=== PATIENT | female | born 1965 | race Caucasian/White ===

== ENCOUNTER 2018-07-26 09:13 | Emergency (ER) | payer MEDICAID ==
[~2018-07-26] VITALS: Ht 157.5 cm; Wt 83.9 kg
--- NOTE | 2018-07-26 09:20 | NUR ---
Patient ambulated to bed 2 with family. RN evaluating patient at bedside.
[2018-07-26 09:21] VITALS: BP 132/68
--- NOTE | 2018-07-26 09:30 | NUR ---
C/O LEFT ANKLE & SHOULDER PAIN 8/ & SHARP AFTER MECHANICAL SLIP AND FALL YESTERDAY AT HOME ON WET SURFACE WHILE TAKING TRASH OUT. MILD SWELLING NOTED TO OUTSIDE OF ANKLE, +2 PEDAL PULSE, M/S FUNCTION IN TACT, <3 SEC CAP REFILL, PT IS AMBULATORY WITH LIMP DUE TO PAIN. BED IN LOW POSITION, DAUGHTER AT BEDSIDE.
--- NOTE | 2018-07-26 09:50 | NUR ---
DR. HRAMON AT BEDSIDE
[2018-07-26 11:07] VITALS: BP 137/70
== END 2018-07-26 11:07 | disposition home or self-care (01) ==
LOC: MED 09:13
DX: S93.402A Sprain of unspecified ligament of left ankle, initial encounter (principal); S43.402A Unspecified sprain of left shoulder joint, initial encounter; I10 Essential (primary) hypertension; W01.0XXA Fall on same level from slipping, tripping and stumbling without subsequent striking against object, initial encounter; Y93.89 Activity, other specified; Y92.89 Other specified places as the place of occurrence of the external cause; Y99.8 Other external cause status
CPT/HCPCS: 71045; 73610; 99283

== ENCOUNTER 2018-08-19 15:02 | Emergency (ER) | payer MEDICAID ==
[~2018-08-19] VITALS: Ht 160 cm; Wt 90.8 kg
[2018-08-19 15:07] VITALS: BP 129/79
--- NOTE | 2018-08-19 15:13 | NUR ---
PT AMBULATED TO ER BED 03
--- NOTE | 2018-08-19 15:22 | NUR ---
52/F BIB FAMILY C/O INTERMITENT SHARP PAIN IN ANTERIOR HEAD PAIN AND POSTERIOR MEDIAL NECK X 4 DAYS. TX WITH IBUPROFEN WITH SOME RELIEF. PT DENIES TRAUMA OR INJURY. + DIZZINESS, NAUSEA, AND FATIGUE. PATIE DENIES V/D; PATIENT STATES PAIN OF 7/10 AT THIS TIME; PATIENT POSITIONED FOR COMFORT; HOB ELEVATED; BEDRAILS UP X1; BED DOWN. ER MD MADE AWARE OF PT STATUS.
[2018-08-19] MEDS ORDERED: METOCLOPRAMIDE 10 MG/2 ML INJ VIAL IVP ONE (15:35)
[2018-08-19] MEDS ORDERED: diphenhydrAMINE 50 MG/ML VIAL IVP ONE (15:35)
[2018-08-19] MEDS ORDERED: NACL 0.9% 1,000 ML IV ONE (15:35)
[2018-08-19] MEDS ORDERED: KETOROLAC 15 MG/ML VIAL IVP ONE (15:35)
[2018-08-19] MEDS ORDERED: PIPERACILLIN/TAZOBACTAM 3.375 GM in DEXTROSE 5% 50 ML IV ONE (16:10)
[2018-08-19] MEDS ORDERED: MORPHINE SULFATE 4 MG/ML SYR IVP ONE (17:50)
[2018-08-19 18:39] VITALS: BP 102/62
--- NOTE | 2018-08-19 18:39 | NUR ---
Patient discharged with v/s stable. Written and verbal after care instructions given and explained. Patient alert, oriented and verbalized understanding of instructions. Ambulatory with steady gait. All questions addressed prior to discharge. ID band removed. Patient advised to follow up with PMD. Rx of IBUPROFEN,ZOFRAN & NORCO given. Patient educated on indication of medication including possible reaction and side effects. Opportunity to ask questions provided and answered.
== END 2018-08-19 18:39 | disposition home or self-care (01) ==
LOC: MED 15:02
DX: R51 Headache (principal); R42 Dizziness and giddiness; R53.83 Other fatigue; R11.0 Nausea; I10 Essential (primary) hypertension; Z90.49 Acquired absence of other specified parts of digestive tract
CPT/HCPCS: 96361; 96374; 96375; 99283; J1200; J1885; J2270; J2765; J7030

== ENCOUNTER 2021-03-06 17:17 | Emergency (ER) | payer MEDICAID ==
[~2021-03-06] VITALS: Ht 152.4 cm; Wt 88.9 kg
[2021-03-06 17:54] VITALS: BP 147/71
--- NOTE | 2021-03-06 18:45 | NUR ---
PATIENT LEFT WITHOUT BEING SEEN BY DR. HATFIELD . NO FURTHER CARE PROVIDED FOR PATIENT.
== END 2021-03-06 18:45 | disposition left against medical advice (07) ==
LOC: MED 17:17
DX: R51.9 Headache, unspecified (principal); R42 Dizziness and giddiness; Z53.21 Procedure and treatment not carried out due to patient leaving prior to being seen by health care provider

== ENCOUNTER 2021-03-10 20:38 | Emergency (ER) | payer MEDICAID ==
[~2021-03-10] VITALS: Ht 157.5 cm; Wt 85.7 kg
[2021-03-10 21:20] VITALS: BP 130/90
--- NOTE | 2021-03-10 21:23 | NUR ---
TO LOBBY A/W BED AMBULATORY
--- NOTE | 2021-03-10 21:38 | NUR ---
PT TAKEN TO RAD
[2021-03-10] MEDS ORDERED: IBUPROFEN 800 MG TAB PO ONE (22:40)
[2021-03-10] MEDS ORDERED: IBUP-2218 PO (23:27)
--- NOTE | 2021-03-10 23:33 | NUR ---
patient ambulated to [facility]
--- NOTE | 2021-03-10 23:36 | NUR ---
[facility] pain [facility]. patient tolerated well, will monitor for adverse affects
[2021-03-11] VITALS: BP 120/81
--- NOTE | 2021-03-11 | NUR ---
Patient discharged with v/s stable. Written and verbal after care instructions given and explained. Patient verbalized understanding. Ambulatory with steady gait. All questions addressed prior to discharge. Advised to follow up with PMD.
== END 2021-03-11 | disposition home or self-care (01) ==
LOC: MED 20:38
DX: M25.522 Pain in left elbow (principal); I10 Essential (primary) hypertension
CPT/HCPCS: 73030; 73080; 99284

== ENCOUNTER 2021-08-21 17:58 | Emergency (ER) | payer MEDICAID ==
[~2021-08-21] VITALS: Ht 149.9 cm; Wt 85.3 kg
[~2021-08-21 17:58] MED LIST: IBUP-2218 PO
[2021-08-21 18:02] VITALS: BP 135/72
--- NOTE | 2021-08-21 18:21 | NUR ---
55 Y/O F BIB SELF C/O CHEST PAIN 8 ONE AND OFF FOR 8 DAYS BUT WORSE TODAAY. ALSO C/O COUGH, NAUSEA DIARRHEA BUT NO VOMITING. PER PT HAS SAME TYPES OF SYMPTOMS. PT IS COVID VACINATED X 2. NKA PMH: ASTHMA
[2021-08-21] MEDS ORDERED: NITROGLYCERIN 0.4 MG TAB SL ONE (19:15)
[2021-08-21 19:21] LABS: BASOPHILS % (AUTO) 0.6 % (0.0-2.0); EOSINOPHILS # (AUTO) 0.1 K/uL (0-0.4); EOSINOPHILS % (AUTO) 2.2 % (0.0-4.0); HEMOGLOBIN 12.8 g/dL (12.0-16.0); LYMPHOCYTES # (AUTO) 2.1 K/uL (2.5-16.5); LYMPHOCYTES % (AUTO) 37.2 % (20.5-51.1); MEAN CORPUSCULAR HEMOGLOBIN 31 pg (27-31); MEAN CORPUSCULAR HGB CONC 34 g/dL (33-37); MEAN CORPUSCULAR VOLUME 92.4 fL (80-94); MONOCYTES # (AUTO) 0.3 K/uL (0.8-1.0); NEUTROPHILS # (AUTO) 3.1 K/uL (1.8-7.7); PLATELET COUNT (AUTO) 251 K/uL (140-450); RED BLOOD CELL COUNT(AUTO) 4.11 MIL/uL (4.20-5.40); RED CELL DISTRIBUTION WIDTH 13.2 % (11.6-13.7); WHITE BLOOD COUNT (AUTO) 5.7 K/uL (4.8-10.8)
--- NOTE | 2021-08-21 19:21 | NUR ---
GAVE REPORT TO RAN CARDONA.
--- NOTE | 2021-08-21 19:22 | NUR ---
PT IS AWAKE AND ALERT. PT REPORTS 8/10 STERNAL CHEST PAIN X5DAYS. PT REPORTS SOB THAT COMES AND GOES. UPDATED PT ON MEDICATION I WILL BE GIVING HER. PT VOCALIZED UNFERSTANDING. ALL NEEDS MET AT THIS TIME.
[2021-08-21 19:55] LABS: CHLORIDE 106 mmol/L (98-107); POTASSIUM 3.4 mmol/L (3.5-5.1); SODIUM SERUM 140 mmol/L (136-145)
[2021-08-21 20:16] LABS: ALBUMIN 3.3 g/dL (3.4-5.0); ANION GAP 9.3 (8-16); ASPARTATE AMINOTRANSFERASE 13 U/L (15-37); CARBON DIOXIDE 29.2 mmol/L (21-32); CREATININE 0.6 mg/dL (0.6-1.3); GFR ARICAN-AMERICAN 133 mL/min (>90); GLUCOSE 155 mg/dL (74-106); TOTAL BILIRUBIN 0.3 mg/dL (0.0-1.0); UREA NITROGEN, BLOOD 18 mg/dL (7-18)
--- NOTE | 2021-08-21 20:41 | NUR ---
PT EXPRESSED CHEST PAIN RELIEF.
--- NOTE | 2021-08-21 21:10 | NUR ---
PT APPEARS TO BE RESTING. EYES ARE CLOSED, OPENS TO SOUNDS. EQUAL RISE AND FALL OF CHEST WALL. VSS. BED LOCKED IN LOWEST POSITION, SIDE RAILS X2, ALL NEEDS MET AT THIS TIME.
[2021-08-21] MEDS ORDERED: IBUPROFEN 600 MG TAB PO ONE (21:15)
--- NOTE | 2021-08-21 21:16 | NUR ---
PATIENT STATED THAT SHE FELT SOME GENERALIZED BODY DISCOMFORT , 04/11. ORDERS CARRIED OUT.
[2021-08-21] MEDS ORDERED: IBUP-2213 PO (21:28)
[2021-08-21] MEDS ORDERED: METH-1681 PO (21:28)
[2021-08-21 21:42] VITALS: BP 110/65
--- NOTE | 2021-08-21 21:42 | NUR ---
Patient discharged with v/s stable. Written and verbal after care instructions given and explained. Patient alert, oriented and verbalized understanding of instructions. Ambulatory with steady gait. All questions addressed prior to discharge. ID band removed. Patient advised to follow up with PMD. Rx of IBUPROFEN, ROBAXIN given. Patient educated on indication of medication including possible reaction and side effects. Opportunity to ask questions provided and answered.
== END 2021-08-21 21:42 | disposition home or self-care (01) ==
LOC: MED 17:58
DX: R07.89 Other chest pain (principal); I10 Essential (primary) hypertension
CPT/HCPCS: 36415; 71045; 80053; 81002; 84484; 85025; 93005; 99285